=== PATIENT | male | born 1960 | race Caucasian/White ===

== ENCOUNTER → 2021-03-05 15:07 | Outpatient (CLI) | payer OTHER, SELFPAY ==
[2021-03-05 18:11] LABS: CRP < 2.90 mg/L (0.0-3.0)
[2021-03-07 17:07] LABS: Endomysial Antibody IgA Negative (Negative)
[2021-03-07 21:10] LABS: Immunoglobulin A 314 mg/dL (90-386); t-Transglutaminase IgA <2 U/mL (0-3)
== END ==
PROVIDERS: PCP Family Medicine; Referring Provider Internal Medicine Gastroenterology; Visit Provider Internal Medicine Gastroenterology
DX: R19.7 Diarrhea, unspecified (principal)
CPT/HCPCS: 36415; 82784; 83516; 86140; 86255

== ENCOUNTER 2022-09-23 08:45 | Outpatient (CLI) | payer OTHER, SELFPAY ==
[2022-09-23 09:34] LABS: Erythrocyte Sedimentation Rate 5 mm/hr (0-20)
[2022-09-23 10:24] LABS: CRP < 2.90 mg/L (0.0-3.0); LDH 177 U/L (87-241)
[2022-09-24 12:09] LABS: Anti-Centromere B Ab <0.2 AI (0.0-0.9); Anti-Chromatin <0.2 AI (0.0-0.9); Anti-Jo <0.2 AI (0.0-0.9); Anti-Scleroderma-70 AB <0.2 AI (0.0-0.9); Anti-dsDNA Ab 1 IU/mL (0-9); RNP Ab 0.2 AI (0.0-0.9); SJOGREN'S Anti-SS-A test < 0.2 AI (0.0-0.9); SJOGREN'S Anti-SS-B test < 0.2 AI (0.0-0.9); Smith Ab <0.2 AI (0.0-0.9)
[2022-09-24 16:09] LABS: Endomysial Antibody IgA Negative (Negative); Immunoglobulin A 341 mg/dL (90-386); t-Transglutaminase IgA 3 U/mL (0-3)
[2022-09-28 17:07] LABS: Albumin 3.6 g/dL (2.9-4.4); Alpha-1-Globulins 0.2 g/dL (0.0-0.4); Alpha-2-Globulins 0.8 g/dL (0.4-1.0); Angiotensin Convert Enzyme 70 U/L (14-82); Cytoplasmic Ab (C-ANCA) <1:20 titer (Neg:<1:20); Gamma Globulin 1.1 g/dL (0.4-1.8); Immunoglobulin A 340 mg/dL (90-386); Immunoglobulin E 14 IU/mL (6-495); Immunoglobulin G 1200 mg/dL (603-1613); Immunoglobulin M 115 mg/dL (20-172); PROEL- TOTAL PROTEIN 7.1 g/dL (6.0-8.5); Perinuclear Ab (P-ANCA) <1:20 titer (Neg:<1:20)
== END 2022-09-23 23:59 | disposition home or self-care (01) ==
PROVIDERS: PCP Family Medicine; Referring Provider Internal Medicine Gastroenterology; Visit Provider Internal Medicine Gastroenterology
DX: R19.7 Diarrhea, unspecified (principal)
CPT/HCPCS: 36415; 82164; 82784; 82785; 83516; 83615; 84165; 85652; 86140; 86225; 86235; 86255; 86256; 86334

== ENCOUNTER → 2022-09-30 | Outpatient (CLI) | payer OTHER, SELFPAY ==
[2022-10-03 22:07] LABS: Pancreatic Elastase, Fecal > 500 (>200)
[2022-10-11 17:07] LABS: Calprotectin, Stool 82 ug/g (0-120); Fats, Neutral Normal (.); Fats, Total Normal (.)
== END | disposition home or self-care (01) ==
PROVIDERS: PCP Family Medicine; Referring Provider Internal Medicine Gastroenterology; Visit Provider Internal Medicine Gastroenterology
DX: K58.0 Irritable bowel syndrome with diarrhea (principal)
CPT/HCPCS: 82653; 82705; 83630; 83993; 87177; 87209; 87329; 87493; 87506

== ENCOUNTER → 2023-04-29 | Outpatient (CLI) | payer OTHER, SELFPAY ==
--- NOTE | 2023-04-29 13:37 | CT_ITS ---
STUDY: CT ABDOMEN AND PELVIS WITH CONTRAST REASON FOR EXAM: Male, 62 years old. Worsening abdominal pain. History of diverticulitis and irritable bowel syndrome. RADIATION DOSAGE (If Supplied By Facility): CTDIvol = ( 13.11 ) mGy, DLP = ( 726.22 ) mGycm TECHNIQUE: Transaxial images were obtained from the dome of the diaphragm to the symphysis pubis with oral contrast. Oral and amp; IV Gastrografin and amp; 100mL Isovue-300 was administered. Sagittal and coronal images were reconstructed. Individualized dose optimization techniques were used for this CT. COMPARISON: None. FINDINGS: Minimal degree of bibasilar atelectasis. The visualized portions of the heart are within normal limits. There is decreased attenuation of the liver consistent with steatosis. There are surgical clips in the gallbladder fossa consistent with a prior cholecystectomy. Normal spleen. Normal pancreas. Normal bilateral adrenal glands. Normal right kidney. Normal left kidney. There is a small hiatal hernia. Normal small intestine. There is diverticulosis, with thickening of the colon wall, and mild pericolonic inflammation changes consistent with acute diverticulitis. The appendix is visualized and appears normal. There is diffuse atherosclerotic calcification of the abdominal aorta and its major visceral branches, without a demonstrated aneurysm. Normal inferior vena cava. Normal retroperitoneum. Normal urinary bladder. There are prostatic calcifications. There is a small umbilical hernia containing fat. Small benign appearing bilateral inguinal lymph nodes. Questionable small right hydrocele. There are degenerative changes of the visualized lumbar spine. CT/Abdomen/Pelvis WITH Contrast IMPRESSION: Findings include mild degree of noncomplicated sigmoid diverticulitis. Electronically Signed: Nahun Decker MD at 14:00 EST ,
[2023-04-29 13:51] LABS: CREATININE FINGERSTICK 1.2 mg/dL (0.70-1.30); EGFR FINGERSTICK > 60.0000 mL/min (>60)
== END | disposition home or self-care (01) ==
LOC: CT 11:34
PROVIDERS: PCP Family Medicine; Referring Provider Internal Medicine Gastroenterology; Visit Provider Internal Medicine Gastroenterology
DX: K57.92 Diverticulitis of intestine, part unspecified, without perforation or abscess without bleeding (principal)
CPT/HCPCS: 74177; Q9967

== ENCOUNTER → 2024-04-27 | Outpatient (CLI) | payer OTHER, SELFPAY ==
[2024-04-27 09:03] LABS: Erythrocyte Sedimentation Rate 3 mm/hr (0-20)
[2024-04-27 09:05] LABS: Absolute Neutrophil Count 4.2 X10^3/uL (2.0-7.7); Basophil# 0.03 X10^3/uL; Basophil% 0.4 % (0-1); Eosinophil# 0.07 X10^3/uL; Eosinophils% 0.9 % (0-5); Hematocrit 43.4 % (40-54); Hemoglobin 14.8 g/dL (13.0-16.5); Lymphocyte % 35.5 % (19-41); Mean Corp Hgb Conc 34.1 g/dL (32-36); Mean Corpuscular Hgb 31.7 pg (27.0-32.0); Mean Corpuscular Volume 92.9 fL (80-94); Mean Platelet Vol. 9.2 fl (6.2-12.0); Monocyte# 0.64 X10^3/uL; Monocyte% 8.4 % (0-10); NRBC Flagged by Analyzer 0 % (0-5); Neutrophil # 4.15 X10^3/uL (2.7-7.7); Neutrophil % 54.5 % (47-70); Platelet Count 295 K/mm3 (150-450); RBC Distribution Width CV 13.2 % (11.6-14.6); RBC Distribution Width SD 44.8 fl (35.1-43.9); Red Blood Count 4.67 M/mm3 (4.6-6.2); White Blood Count 7.6 K/mm3 (4.4-11.0)
[2024-04-27 09:27] LABS: AST(SGOT) 17 U/L (15-37); Alanine Aminotransfer ALT/SGPT 38 U/L (16-61); Albumin, Serum 3.4 g/dL (3.2-5.0); Alkaline Phosphatase 79 U/L (45-117); Anion Gap 3 (5-15); BUN 13 mg/dL (7-18); BUN/Creat Ratio 13.1 RATIO (10-20); CRP < 2.90 mg/L (0.0-3.0); Calcium,Total 9.4 mg/dL (8.5-10.1); Chloride 107 mmol/L (98-107); Creatinine, Serum 0.99 mg/dL (0.70-1.30); EST Glomerular Filtration Rate 81 mL/min (>60); Est Glom Filt Rate - Afr Amer 98 mL/min (>60); Globulin 3.5 g/dL (2.2-4.2); Glucose 99 mg/dL (74-106); Potassium 4.1 mmol/L (3.5-5.1); Protein, Total 6.9 g/dL (6.4-8.2); Sodium Level 139 mmol/L (136-145)
== END | disposition home or self-care (01) ==
LOC: LAB 08:35
PROVIDERS: PCP Family Medicine; Referring Provider Internal Medicine Gastroenterology; Visit Provider Internal Medicine Gastroenterology
DX: K62.9 Disease of anus and rectum, unspecified (principal)
CPT/HCPCS: 36415; 80053; 85025; 85652; 86140

== ENCOUNTER 2024-08-30 06:10 | Day surgery (SDC) | payer OTHER, SELFPAY ==
--- NOTE | 2024-08-25 11:11 | PAT.ANESEVAL ---
Pre-Assessment Diagnosis/Proposed Procedure Planned Operative Procedure(s): EGD PH PROBE Anesthesia History Anesthesia History - insurance healthcare representative: Anesthesia History - insurance healthcare representative Hx Hospitalization No 08/24/24 15:52 Any Problems With Anesthesia No 08/24/24 15:52 Cholinesterase deficiency No 08/24/24 15:52 You/Your Family Experience No 08/24/24 15:52 fever (hyperthermia) with Relationship Recent Exposure to Contagious Disease Does patient have nerve No 08/24/24 15:52 stimulator Patient instructed to have device shut off --Does patient have Pacemaker or ICD? When Was Last Pacemaker Check QUESTION #4 FULL TEXT: You/Your Family Experience fever (hyperthermia) with Anesthesia Last Oral Intake Last Oral intake: Last Oral Intake NPO since Meds taken in AM with sips of water? 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 - insurance healthcare representative: PONV - insurance healthcare representative Female No 08/24/24 15:52 HX of Motion Sickness No 08/24/24 15:52 HX of N/V After Surgery No 08/24/24 15:52 Non-Smoker Yes 08/24/24 15:52 Duration of Surgery greater No 08/24/24 15:52 than 60 minutes Number of Risk Factors 1 08/24/24 15:52 PONV Score Low Risk 08/24/24 15:52 Height & Weight Height & Weight: Anesthesia: Height & Weight Height 5 ft 9 in 08/18/24 09:21 Respiratory Assessment Respiratory Assessment - insurance healthcare representative: Respiratory Tract Infection Hx - insurance healthcare representative Hx Respiratory Tract Infection No 08/24/24 15:52 STOP Sleep Apnea STOP Sleep Apnea - insurance healthcare representative: STOP Sleep Apnea - insurance healthcare representative Hx Hypertension No 08/24/24 15:52 Hx Sleep Apnea No 08/24/24 15:52 CPAP BIPAP Do you snore loudly (louder No 08/24/24 15:52 than talking or can be heard Do you often feel tired/ Yes 08/24/24 15:52 fatigued/ sleepy during daytime? Has anyone observed you stop No 08/24/24 15:52 breathing during sleep? STOP Results Negative 08/24/24 15:52 QUESTION #5 FULL TEXT : Do you snore loudly (louder than talking or can be heard through closed doors)? Tobacco Use History Tobacco Use History - insurance healthcare representative: Tobacco Use History - insurance healthcare representative Tobacco Use Smoking Status Former smoker 08/24/24 15:52 Hx Tobacco Use No 08/24/24 15:52 Years Smoking Packs Smoked per Day Smoking Cessation Date was No - quit smoking greater 08/24/24 15:52 within the last 15 years than 15 years ago Hx Smoking Cessation Date Hx Smoking Cessation No 08/24/24 15:52 Counseling Hematologic Medial History Hematologic Hx - insurance healthcare representative: Hematologic Medical Hx - team lead Hx of Blood Transfusion No 08/24/24 15:52 Hx of Transfusion in last 3 No 08/24/24 15:52 Months Date of Last Transfusion (if within last 3 months) Ever experience any problems No 08/24/24 15:52 with transfusion(s)? Specify any problems Hx of Preganancy in last 3 N/A 08/24/24 15:52 Months Nurse Filling Out Transfusion DSCHRIBER 08/24/24 15:52 & Questions: Date: 08/24/24 08/24/24 15:52 Time: 15:53 08/24/24 15:52 Patient unable to answer at this time (ie. confused, unrespo /Reproduction History /Reproductive History - insurance healthcare representative: /Reproductive Hx- insurance healthcare representative Hx Now No 08/24/24 15:52 Gestational Age (in weeks): EDC: Hx Hx Para Hx Section SAB No 08/24/24 15:52 PFSH Medical History (Updated 08/24/24 @ 16:03 by Roxy Dye) Tinnitus Wears glasses Alcohol use History of steroid therapy Back pain Migraine headache Leg cramps Former smoker History of stress test Diverticulosis History of torsion of testis Hiatal hernia Acute colitis GERD (gastroesophageal reflux disease) Irritable bowel syndrome with diarrhea Osteoarthritis Fatigue Home Medications ?Medication ?Instructions ?Recorded ?Last Taken ?Type omeprazole 20 mg capsule,delayed 20 mg PO QDAY 08/18/24 08/20/24 History release Allergy/AdvReac Type Severity Reaction Status Date / Time acetaminophen (From Percocet) Allergy Intermediate Other Verified 08/24/24 15:49 amoxicillin (From Augmentin) Allergy Intermediate Other Verified 08/24/24 15:49 clavulanic acid (From Allergy Intermediate Other Verified 08/24/24 15:49 Augmentin) doxycycline Allergy Intermediate Other Verified 08/24/24 15:49 oxycodone (From Percocet) Allergy Intermediate Other Verified 08/24/24 15:49 naproxen AdvReac Nausea Verified 08/24/24 15:49 Surgical History (Updated 08/24/24 @ 16:03 by Roxy Dye) Hx of oral surgery History of esophagogastroduodenoscopy (EGD) Hx of colonoscopy History of shoulder surgery Hx of eye surgery Hx of total knee arthroplasty Hx of left knee surgery Hx of right knee surgery History of cholecystectomy Social History (Updated 08/18/24 @ 09:21 by Marj Graham LPN) Smoking Status: Former smoker alcohol intake: current alcohol intake frequency: holidays/special occasions only substance use type: does not use Audit: Pertinent Findings Pertinent Findings EKG Perinent findings: 03/02/2015. Normal sinus rhythm 70 bpm. Normal EKG. Stress test pertinent findings: 05/15/2022. Negative. 10 METS. EF 56%. Recommendation Anesthesia Recommendation Anesthesia recommendation: OPTIMIZED for anesthesia
[2024-08-30] VITALS (7 sets, daily range): BP systolic 93–150; BP diastolic 72–86; PULSE 73–87; RESP 16; TEMP 36.4–36.8; O2SAT 94–96; BMI 25.0
--- NOTE | 2024-08-30 07:21 | PCM.PRE.AN2 ---
ASA Classification* ASA Classification ASA Classification: 2 Assessment & Plan Anesthesia* Anesthesia Assessment Anesthesia Assessment: Discussed sedation and/or anesthesia options, risks, benefits, and alternatives with patient/parents/legal guardian/POA. Questions invited. The patient/parents/legal guardian/POA seems to understand and agrees to proceed with anesthesia plan. Reviewed the physical assessment, medical history, allergy history and patient home medications list prior to surgery/procedure/anesthetic and documented any changes. Performed airway and anesthesia risk assessments. Anesthesia Type Anesthesia Type: MAC Anesthesia Focused Assessment* Temperature: 98.2 F Pulse Rate: 87 Blood Pressure: 150/84 Respiratory Rate: 16 Pulse Ox: 96 Airway Assessment Mouth opens: >3 cm Mallampati Score: II Focused Labs Anesthesia Preop lab: CBC WBC 7.6 K/mm3 (4.4-11.0) 04/27/24 08:46 04/27/24 RBC 4.67 M/mm3 (4.6-6.2) 04/27/24 08:46 04/27/24 Hgb 14.8 g/dL (13.0-16.5) 04/27/24 08:46 04/27/24 Hct 43.4 % (40-54) 04/27/24 08:46 04/27/24 Plt Count 295 K/mm3 (150-450) 04/27/24 08:46 04/27/24 CHEMISTRY Potassium 4.1 mmol/L (3.5-5.1) 04/27/24 08:46 04/27/24 Sodium 139 mmol/L (136-145) 04/27/24 08:46 04/27/24 BUN 13 mg/dL (7-18) 04/27/24 08:46 04/27/24 Creatinine 0.99 mg/dL (0.70-1.30) 04/27/24 08:46 04/27/24 Glucose 99 mg/dL (74-106) 04/27/24 08:46 04/27/24 COAG Pre-Assessment Diagnosis/Proposed Procedure Planned Operative Procedure(s): EGD PH PROBE Anesthesia History Anesthesia History - food quality tester: Anesthesia History - food quality tester Hx Hospitalization No 08/24/24 15:52 Any Problems With Anesthesia No 08/24/24 15:52 Cholinesterase deficiency No 08/24/24 15:52 You/Your Family Experience No 08/24/24 15:52 fever (hyperthermia) with Relationship Recent Exposure to Contagious No 08/30/24 06:56 Disease Does patient have nerve No 08/24/24 15:52 stimulator Patient instructed to have device shut off --Does patient have Pacemaker No 08/30/24 06:56 or ICD? When Was Last Pacemaker Check QUESTION #4 FULL TEXT: You/Your Family Experience fever (hyperthermia) with Anesthesia Last Oral Intake Last Oral intake: Last Oral Intake NPO since 22:00 08/30/24 06:56 Meds taken in AM with sips of water? 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 - food quality tester: PONV - food quality tester Female No 08/24/24 15:52 HX of Motion Sickness No 08/24/24 15:52 HX of N/V After Surgery No 08/24/24 15:52 Non-Smoker Yes 08/24/24 15:52 Duration of Surgery greater No 08/24/24 15:52 than 60 minutes Number of Risk Factors 1 08/24/24 15:52 PONV Score Low Risk 08/24/24 15:52 Height & Weight Height & Weight: Anesthesia: Height & Weight Height 5 ft 10 in 08/30/24 06:56 Weight: 79 kg 08/30/24 06:56 Body Mass Index (BMI) 25.0 08/30/24 06:56 Respiratory Assessment Respiratory Assessment - food quality tester: Respiratory Tract Infection Hx - food quality tester Hx Respiratory Tract Infection No 08/24/24 15:52 STOP Sleep Apnea STOP Sleep Apnea - food quality tester: STOP Sleep Apnea - food quality tester Hx Hypertension No 08/24/24 15:52 Hx Sleep Apnea No 08/24/24 15:52 CPAP BIPAP Do you snore loudly (louder No 08/24/24 15:52 than talking or can be heard Do you often feel tired/ Yes 08/24/24 15:52 fatigued/ sleepy during daytime? Has anyone observed you stop No 08/24/24 15:52 breathing during sleep? STOP Results Negative 08/24/24 15:52 QUESTION #5 FULL TEXT : Do you snore loudly (louder than talking or can be heard through closed doors)? Tobacco Use History Tobacco Use History - food quality tester: Tobacco Use History - food quality tester Tobacco Use Smoking Status Former smoker 08/24/24 15:52 Hx Tobacco Use No 08/24/24 15:52 Years Smoking Packs Smoked per Day Smoking Cessation Date was No - quit smoking greater 08/24/24 15:52 within the last 15 years than 15 years ago Hx Smoking Cessation Date Hx Smoking Cessation No 08/24/24 15:52 Counseling Hematologic Medial History Hematologic Hx - food quality tester: Hematologic Medical Hx - night club manager Hx of Blood Transfusion No 08/24/24 15:52 Hx of Transfusion in last 3 No 08/24/24 15:52 Months Date of Last Transfusion (if within last 3 months) Ever experience any problems No 08/24/24 15:52 with transfusion(s)? Specify any problems Hx of Preganancy in last 3 N/A 08/24/24 15:52 Months Nurse Filling Out Transfusion DSCHRIBER 08/24/24 15:52 & Questions: Date: 08/24/24 08/24/24 15:52 Time: 15:53 08/24/24 15:52 Patient unable to answer at this time (ie. confused, unrespo /Reproduction History /Reproductive History - food quality tester: /Reproductive Hx- food quality tester Hx Now No 08/24/24 15:52 Gestational Age (in weeks): EDC: Hx Hx Para Hx Section SAB No 08/24/24 15:52 PFSH Medical History Tinnitus Wears glasses Alcohol use History of steroid therapy Back pain Migraine headache Leg cramps Former smoker History of stress test Diverticulosis History of torsion of testis Hiatal hernia Acute colitis GERD (gastroesophageal reflux disease) Irritable bowel syndrome with diarrhea Osteoarthritis Fatigue Home Medications ?Medication ?Instructions ?Recorded ?Last Taken ?Type omeprazole 20 mg capsule,delayed 20 mg PO QDAY 08/18/24 08/20/24 History release calcium carbonate (Tums) 400 mg PO TID 08/30/24 08/29/24 21:00 History famotidine 10 mg tablet (Acid 10 mg PO DAILY 08/30/24 08/27/24 06:00 History Signal Integrity Engineer (famotidine)) Allergy/AdvReac Type Severity Reaction Status Date / Time acetaminophen (From Percocet) Allergy Intermediate Other Verified 08/30/24 06:47 amoxicillin (From Augmentin) Allergy Intermediate Other Verified 08/30/24 06:47 clavulanic acid (From Allergy Intermediate Other Verified 08/30/24 06:47 Augmentin) doxycycline Allergy Intermediate Other Verified 08/30/24 06:47 oxycodone (From Percocet) Allergy Intermediate Other Verified 08/30/24 06:47 naproxen AdvReac Nausea Verified 08/30/24 06:47 Surgical History Hx of oral surgery History of esophagogastroduodenoscopy (EGD) Hx of colonoscopy History of shoulder surgery Hx of eye surgery Hx of total knee arthroplasty Hx of left knee surgery Hx of right knee surgery History of cholecystectomy Social History Smoking Status: Former smoker alcohol intake: current alcohol intake frequency: holidays/special occasions only substance use type: does not use Review of Systems (Anesthesia) ROS Narrative System reviewed and no additional complaints, except as documented.
--- NOTE | 2024-08-30 07:23 | HP.PCM_ITS ---
History and Physical Date of Service: 08/18/24 MR#: [id number] Acct: [id number] Name: TRINITY DUMONT Rep #: [id number] : 1960 Provider: Dr. Kiel Lynch MD Age/Sex: 63/M Location: [facility] Status: Signed Intake Vital Signs 09/24/2307:00 08/18/2508:21 Height 5 ft 10 in 5 ft 9 in Weight: 177 lb 6 oz BMI 26.2 BP 160/100 H Blood Pressure Location Rt brachial Position Sitting Respiration 18 Pulse 72 Pulse Source Monitor Temp 97.3 F L Temp Source Temporal Pulse Oximetry (%) 99 Oxygen Delivery Method room air Intake Visit Reasons: HIATAL HERNIA Chief Complaint: hiatal hernia Is patient in pain?: No Allergies acetaminophen (From Percocet) Allergy (Intermediate, Verified 08/18/24 09:22) Otheramoxicillin (From Augmentin) Allergy (Intermediate, Verified 08/18/24 09:22) Otherclavulanic acid (From Augmentin) Allergy (Intermediate, Verified 08/18/24 09:22) Otherdoxycycline Allergy (Intermediate, Verified 08/18/24 09:22) Otheroxycodone (From Percocet) Allergy (Intermediate, Verified 08/18/24 09:22) Othernaproxen Adverse Reaction (Verified 08/18/24 09:22) Nausea Medications ?Medication ?Instructions ?Recorded ?Confirmed ?Type duloxetine 20 mg capsule,delayed 20 mg PO QHS #30 caps 01/02/24 04/27/24 Rx release (Cymbalta) dicyclomine 20 mg tablet 20 mg PO BID PRN 04/27/24 04/27/24 Histo ry omeprazole 20 mg capsule,delayed 20 mg PO QDAY 08/18/24 08/18/24 History release [facility] Medical History (Updated 08/18/24 @ 12:[address] Kiel Lynch MD) Hiatal hernia Acute colitis GERD (gastroesophageal reflux disease) Acute diverticulitis Irritable bowel syndrome with diarrhea Dysfunctional gallbladder Bloody stools Osteoarthritis Acute back pain Kidney stones SOB (shortness of breath) Fatigue Surgical History History of cholecystectomy Social History (Updated 08/18/24 @ 09:21 by GEORGES Bass Smoking Status: Former smoker alcohol intake: current alcohol intake frequency: holidays/special occasions only substance use type: does not use HPI HPI HPI: Patient is a 63-year-old male who presents for evaluation of acid reflux and a history of hiatal hernia. They are referred for surgical consultation from Dr. Félix Dorado. Patient presents today with his spouse. He shares that he has had reflux so long he cannot recall its onset, however, he notes that it has been progressive. To manage the symptoms he states he will sometimes take Prilosec both in the morning and then later again in the evening. He has not used any other medications for this symptom. He does confirm that it is acid reflux more than heartburn that is the problem. He suggests a symptom frequency of at least once per week and an episode can last for hours at a time. He notes that both mornings and evenings are worse than the middle of the day. In addition to straightforward reflux he suggest that he is burping acid which makes it feel like he is ready to puke. Additionally to he states he is experiencing some new hoarseness for which she has no other explanation. He reports a diagnosis of walking pneumonia approximately a decade ago but denies frequent upper respiratory tract infections. Outside of his reflux issue Mr. Dumont is treated by Dr. Carias of gastroenterology for a variant of diverticulitis. He states that he lives life around the toilet. By this he means that he experiences frequent diarrhea but states both things have been better since following with Dr. Carias and being started on Cymbalta and dicyclomine. Patient completed both colonoscopy and EGD with Dr. Kaz Reyes in 2022. He shares that he does have a history of polyps. He is unaware of any personal history of Garcia's esophagus. Patient has family history of esophageal cancer with his father. Patient describes trying to make lifestyle modifications to assist with his disease process and declares that he eats no later than 6 PM each night and then retires to bed between 8 PM and 9 PM. 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 While sleeping he reports that he is kind of propped on his pillows. Outside of these considerations he has tried to limit his caffeine and reports just 1 cup of coffee and occasional Mountain Dew daily. He also states that he is very careful with consumption of any spicy foods. ROS General General: No weight change, appetite, fatigue, colon cancer, breast cancer or weakness HEENT HEENT: No difficulty swallowing, eye injury, eye surgery, swollen glands or hoarseness Endo Endocrine: No thyroid disease, diabetes mellitus, thyroid cancer, Hair loss, heat intolerance or cold intolerance Skin Skin: No rash or changing moles Musc Musculoskeletal: Yes back problems and arthritis; No rheumatoid arthritis, gout or joint pain Cardio Cardiovascular: No murmur, pacemaker, heart disease, atrial fibrillation, high blood pressure, heart attack, heart stent, palpitations, shortness of breath with exertion or chest pain Psych Psychiatric: No depression, anxiety or hearing voices Resp Respiratory: No shortness of breath, No sleep apnea, No cough, No COPD, No asthma, No emphysema and No wheezing Gastro Gastrointestinal: Yes abdominal pain, Yes nausea or vomiting, Yes diarrhea, Yes constipation, Yes blood in stool, Yes acid reflux, Yes hemorrhoids, No ulcers, No gallbladder problem and No black,tarry stools Bjorn Hematologic: No blood thinners, No blood disorders, No bleeding, No anemia and No blood clots Neuro Neurologic: Yes numbness, Yes tingling and No weakness Exam Const General: cooperative, comfortable and no acute distress Orientation: alert, awake and oriented x3 Resp Effort & Inspection: normal respiratory effort GI Other: Normal habitus, scars consistent with prior port sites are well-healed. No visible herniation. Nondistended, soft, nontender to palpation x 4 quadrants. Assessment and Plan Assessment and Plan (1) GERD (gastroesophageal reflux disease): Status: Acute Comment: Patient is 63-year-old male with gastroesophageal reflux disease that is overall managed with use of PPI medications, however, patient has noted increasing symptom frequency and a concurrent need to increase this medication for control of his symptoms. He states it is ultimately his wish to no longer require these medications but also to manage his risk for esophageal cancer?of disease from which his father ultimately passed. His previously diagnosed with a hiatal hernia on endoscopy and this is seen as well on CAT scan imaging of his abdomen and pelvis. I do not see that he had any formal biopsies of the gastroesophageal junction and no pH study was undertaken at that time. Therefore, it is my recommendation to repeat patient's EGD with biopsy and begin a pH study at that time. After a discussion of the pathophysiology and possible fundoplication, patient reports that he is interested in proceeding with surgical preoperative evaluation and we will thus plan to refer for for both esophagram and esophageal manometry. I briefly discussed the options for surgical repair to include full versus partial wrapping and suggested that today's literature largely favors the latter. I did invite patient to begin investigation for himself as well. Hand drawings were made to illustrate relevant anatomy and patient actually photographed these notes for later reference. Along with these descriptions I discussed that some patients have abnormal or inability to belch or vomit and while patient had some concerns he stated his interest in being done with the retrosternal discomfort seemed to outweigh these other concerns. Plan: ? EGD with pH probe ? Esophageal manometry ? Barium esophagram (2) Hiatal hernia: Status: Acute Comment: Patient with ongoing consideration for laparoscopic hiatal hernia repair with fundoplication. At the outset patient appears to be an ideal candidate for this procedure based on his present habitus, experience with gastroesophageal reflux disease (in response to medical treatment), his interest in being free of PPI medications, and his family history. Orders: Orders Esophagus Single Contrast Today K21.9 - Gastro-esophageal reflux disease without esophagitis EGD with 48 pH probe Today K44.9 - Diaphragmatic hernia without obstruction or gangrene Esophageal Manometry Today K21.9 - Gastro-esophageal reflux disease without esophagitis, K44.9 - Diaphragmatic hernia without obstruction or gangrene Coding Level of Care Code Off vis,new,level 4 Diagnoses GERD (gastroesophageal reflux disease) K21.9 Hiatal hernia K44.9 Time Spent (min) 50 08/18/24 1206 <Electronically signed by Kiel Lynch MD> Date Kiel Lynch MD Cosigner Signature: Date (if applicable) CC: Dr. Félix Dorado MD ~ I have examined the patient the following changes are noted: Patient states that he has had a difficult time following discontinuation of his PPI. He is encouraged to stay the course and also refrain from other antiacids during the procedure recording. Lastly he wishes to know whether or not his diet was changed. He is encouraged to take a diet that is reflective of his normal intake. Will proceed to endoscopy suite for EGD with pH probe placement.
--- NOTE | 2024-08-30 07:30 | EGD_PTH ---
PATIENT: TRINITY DUMONT LOC: EN U#:[id number] AGE/SX: 63/M ROOM: RE08/30/[address]: Dr. Kiel Lynch MD : 1960 BED: DIS: 08/30/2024 SPEC #: [id number] RECD: 08/30/24 12:06 STATUS: LUCILA ALLA #: [id number] PRICILLA: 08/30/24 07:[address]: Kiel Lynch DEPT: SURGICAL PATHOLOGY RECD BY: Enrike Bernstein ENTERED: 08/30/24 12:07 SP TYPE: EGD BIOPSY CLAUS DR: Dr. Félix Dorado MD Tissues: A - Duodenum, NOS B - Gastric mucous membrane C - Gastric mucous membrane D - COLON BIOPSY E - Esophagus, NOS Procedures: Immunohistochemical Stains Surgery Specimen Level IV HEADER OPERATION: EGD, biopsy, polypectomy PRE-OP DIAGNOSIS: GERD, hiatal hernia TISSUE SUBMITTED: A- Duodenal bulb ulcerated mucosa biopsy, B- Antral nodule biopsy, C- Antrum biopsy, D- Gastric polyps, E- Distal esophagus plaque biopsy MICROSCOPIC DIAGNOSIS A. Small bowel, duodenal bulb, ulcerated mucosa, biopsy: * Acute and chronic duodenitis with focal surface erosion and fibrinous exudate (See note) Note: Immunohistochemical staining for Helicobacter pylori organisms is in progress and will be reported as an addendum B. Stomach, antral nodule, biopsy: * Antral mucosa with chronic focal active inflammation with reactive changes and focal intestinal metaplasia (See note) Note: Immunohistochemical staining for Helicobacter pylori organisms is in progress and will be reported as an addendum C. Stomach, antrum, biopsy: * Antral/oxyntic mucosa with mild chronic inflammation * No morphologic evidence of Helicobacter pylori organisms identified on H&E or immunostained sections D. Stomach, gastric polyps, biopsy: * Fundic gland polyps E. Distal esophagus, plaque, biopsy: * Benign squamous epithelium with no pathologic change MICROSCOPIC DESCRIPTION Slides are reviewed. These tests were developed and their performance characteristics determined by [facility]. They may not have been cleared or approved by the U.S. Food and Drug Administration. The FDA has determined that such clearance or approval is not necessary. The above immunohistochemical/dualISH markers are ordered and reviewed by the Pathologist. GROSS DESCRIPTION A. Received in formalin in a container labeled with the patient's name, date of , and duodenal bulb ulcerated mucosa biopsy are 2 juarez-pink fragments of mucosal tissue, each measuring 0.3 x 0.2 x 0.2 cm. Submitted in toto in A1. B. Received in formalin in a container labeled with the patient's name, date of , and antral nodule biopsy is a 0.5 x 0.3 x 0.3 cm fragment of juarez-pink mucosal tissue. Submitted in toto in B1. C. Received in formalin in a container labeled with the patient's name, date of , and antrum biopsy is a 0.5 x 0.4 x 0.3 cm fragment of juarez-pink mucosal tissue. Submitted in toto in C1. D. Received in formalin in a container labeled with the patient's name, date of , and gastric polyps are multiple juarez-pink fragments of mucosal tissue measuring 2.2 x 2.0 x 0.6 cm in aggregate. The largest fragments are sectioned (no margin identified). Submitted entirely in D1. E. Received in formalin in a container labeled with the patient's name, date of , and distal esophagus plaque biopsy are multiple juarez-pink and wispy fragments of mucosal tissue measuring 0.6 x 0.5 x 0.1 cm. Submitted in toto in E1. [facility] 08/31/2024 CPT:73323g4,[id number] ADDENDUM ADDENDUM 09/16/2024 15:02 ADDENDUM 09/16/2024 15:02 ADDENDUM 09/16/2024 15:02 ADDENDUM 09/16/2024 15:02 ADDENDUM 09/16/2024 15:02 Immunohistochemical staining for part A and B are negative
--- NOTE | 2024-08-30 08:47 | OP.CCLET_ITS ---
08/30/2024 Félix Dorado Md Re : Upper GI endoscopy procedure for Richard Boo Estrada This procedure was performed on Friday, August 30, 2024. My impressions and recommendations are as follows: Impressions : - Duodenitis. Biopsied. - Two mucosal papules (nodules) found in the stomach. Biopsied. - Erythematous mucosa in the antrum. Biopsied. - Multiple gastric polyps. Resected and retrieved. - Large hiatal hernia. - A single plaque in the distal esophagus. Biopsied. - Large hiatal hernia. - The PENN pH capsule was deployed. Recommendations : - Discharge patient to home (via wheelchair). - Soft diet today. - No aspirin, ibuprofen, naproxen, or other non-steroidal anti-inflammatory drugs for 2 days after biopsy. - Await pathology results. My findings are described in the full procedure note, which is enclosed. If I can be of further assistance, please feel free to contact me at Doctor phone number(s): , Work: . Sincerely, Kiel Lynch MD 08/30/2024 8:46:41 AM This report has been signed electronically.
--- NOTE | 2024-08-30 08:47 | OP.EGD_ITS ---
Patient Name: Richard Romero Procedure Date: 08/30/2024 7:13 AM Date of : 1960 Age: 63 Procedure: Upper GI endoscopy Indications: Esophageal reflux, Hiatal hernia Providers: Kiel Lynch MD Referring MD: Félix Dorado Md Medicines: See the Anesthesia note for documentation of the administered medications Patient Profile: Patient has symptoms of chronic heartburn and chronic nausea. Complications: No immediate complications. Estimated blood loss: Minimal. Procedure: Pre-Anesthesia Assessment: - The heart rate, respiratory rate, oxygen saturations, blood pressure, adequacy of pulmonary ventilation, and response to care were monitored throughout the procedure. After obtaining informed consent, the endoscope was passed under direct vision. Throughout the procedure, the patient's blood pressure, pulse, and oxygen saturations were monitored continuously. The Endoscope was introduced through the mouth, and advanced to the second part of duodenum. The upper GI endoscopy was accomplished without difficulty. The patient tolerated the procedure well. Scope In: 7:51:44 AM Scope Out: 8:33:01 AM Total Procedure Duration Time 0 hours 41 minutes 17 seconds Findings: Localized mild inflammation characterized by shallow ulcerations was found in the duodenal bulb. Biopsies were taken with a cold forceps for histology. Estimated blood loss was minimal. Two 3 to 5 mm mucosal papules (nodules) with no bleeding and no stigmata of recent bleeding were found in the gastric antrum. The nodules were Jess classification IIa (superficial, elevated). Biopsies were taken with a cold forceps for histology. Estimated blood loss was minimal. Localized mildly erythematous mucosa without bleeding was found in the gastric antrum. Biopsies were taken with a cold forceps for Helicobacter pylori testing. Estimated blood loss was minimal. Multiple 2 to 7 mm semi-pedunculated polyps with no bleeding and no stigmata of recent bleeding were found in the gastric fundus and in the gastric body. The polyp was removed with a hot snare. Resection and retrieval were complete using a Johnston net. A large hiatal hernia was present. Estimated blood loss: None. A single 5 mm plaque was found in the distal esophagus, 37 cm from the incisors. Biopsies were taken with a cold forceps for histology. Estimated blood loss was minimal. A large hiatal hernia was present. The PENN capsule with delivery system was introduced through the mouth and advanced into the esophagus, such that the PENN pH capsule was positioned 33 cm from the incisors, which was 6 cm proximal to the GE junction. The PENN pH capsule was then deployed and attached to the esophageal mucosa. The delivery system was then withdrawn. Endoscopy was utilized for probe placement and diagnostic evaluation. Impression: - Duodenitis. Biopsied. - Two mucosal papules (nodules) found in the stomach. Biopsied. - Erythematous mucosa in the antrum. Biopsied. - Multiple gastric polyps. Resected and retrieved. - Large hiatal hernia. - A single plaque in the distal esophagus. Biopsied. - Large hiatal hernia. - The PENN pH capsule was deployed. Recommendation: - Discharge patient to home (via wheelchair). - Soft diet today. - No aspirin, ibuprofen, naproxen, or other non-steroidal anti-inflammatory drugs for 2 days after biopsy. - Await pathology results. Procedure Code(s): --- Professional --- 12852, Esophagogastroduodenoscopy, flexible, transoral; with removal of tumor(s), polyp(s), or other lesion(s) by snare technique 95667, 59, Esophagogastroduodenoscopy, flexible, transoral; with biopsy, single or multiple Diagnosis Code(s): --- Professional --- K29.80, Duodenitis without bleeding K31.89, Other diseases of stomach and duodenum K31.7, Polyp of stomach and duodenum K44.9, Diaphragmatic hernia without obstruction or gangrene K22.89, Other specified disease of esophagus K21.9, Gastro-esophageal reflux disease without esophagitis CPT copyright 2021 [employer]. All rights reserved. The codes documented in this report are preliminary and upon outpatient coder review may be revised to meet current compliance requirements. Kiel Lynch MD 08/30/2024 8:46:41 AM This report has been signed electronically. Number of Addenda: 0 Note Initiated On: 08/30/2024 7:13 AM
--- NOTE | 2024-08-30 08:48 | PCM.POST.ANE ---
Anesthesia: Postop Eval I Current Vital Signs Temperature: 97.6 F Pulse Rate: 78 Blood Pressure: 93/72 Respiratory Rate: 16 Pulse Ox: 94 Oxygen Delivery Method: Room Air Assessment Airway patent: Yes Spontaneous unlabored respirations: Yes Mental status: Asleep nausea: No Vomiting: No Anesthesia Complication: No Fluid Hydration Crystalloid volume administer (ml): 95 Total IV fluid infused: 95 Progress Note Anesthesia document: Postop Eval 1 completed: Yes
--- NOTE | 2024-08-30 08:56 | PCM.POSTANE2 ---
Anesthesia Postop Eval I Sum Postop Eval Completion status Anesthesia document: Postop Eval 1 completed: Yes Anesthesia Postop Eval I Summary Anesthesia Postop Eval I Summary: Anesthesia Postop Eval I: Assessment Summary Airway patent Yes 08/30/24 08:50 [email or web address] Spontaneous unlabored Yes 08/30/24 08:50 [email or web address] respirations Mental status Asleep 08/30/24 08:50 [email or web address] nausea No 08/30/24 08:50 [email or web address] Vomiting No 08/30/24 08:50 [email or web address] Anesthesia Postop Eval I: Fluid Summary Crystalloid volume administer 95 08/30/24 08:50 [email or web address] (ml) Colloids volume administered ( ml) Blood Product volume administered (ml) Total IV fluid infused 95 08/30/24 08:50 [email or web address] Anesthesia Postop Eval I: Summary Notes Anesthesia Complication No 08/30/24 08:50 [email or web address] Anesthesia Complication Comment: Post-operative progress note Anesthesia: Postop Eval II Evaluation Mental status: Awake Pain Level: 0 nausea: No Vomiting: No
== END 2024-08-30 09:46 | disposition home or self-care (01) ==
LOC: EN 06:11 → AC 06:15
PROVIDERS: PCP Family Medicine; Referring Provider Family Medicine; Visit Provider Surgery
PROC: (CPT 43235; principal; 2024-08-30 07:25)
DX: K44.9 Diaphragmatic hernia without obstruction or gangrene (principal); K31.7 Polyp of stomach and duodenum; K22.89 Other specified disease of esophagus; K31.89 Other diseases of stomach and duodenum; K21.9 Gastro-esophageal reflux disease without esophagitis; K29.80 Duodenitis without bleeding; Z87.891 Personal history of nicotine dependence; Z79.899 Other long term (current) drug therapy; K58.0 Irritable bowel syndrome with diarrhea; Z90.49 Acquired absence of other specified parts of digestive tract; Z86.0100 Personal history of colon polyps, unspecified; Z80.8 Family history of malignant neoplasm of other organs or systems
CPT/HCPCS: 43251; 43239; 88305; 88342; A4216; J2405

== ENCOUNTER → 2024-09-03 | Day surgery (SDC) | payer OTHER, SELFPAY ==
[2024-09-03] MEDS: Lidocaine Jelly 2% 20 ML Syringe (URO-JET) 1 APPLIC (07:25)
[2024-09-03 07:31] VITALS: BP 166/85; PULSE 88; RESP 18; TEMP 36.6; O2SAT 100
== END | disposition home or self-care (01) ==
PROVIDERS: PCP Family Medicine; Referring Provider Family Medicine; Visit Provider Surgery
PROC: F00ZJWZ Instrumental Swallowing and Oral Function Assessment using Swallowing Equipment (ICD-10-PCS; CPT 43235; principal; 2024-09-03 07:25)
DX: Z53.20 Procedure and treatment not carried out because of patient's decision for unspecified reasons (principal)
CPT/HCPCS: 91010

== ENCOUNTER → 2024-09-16 | Outpatient (CLI) | payer OTHER, SELFPAY ==
--- NOTE | 2024-09-16 08:25 | RAD_ITS ---
EXAM: Single and double contrast esophagram. CLINICAL HISTORY: Gastroesophageal reflux disease. Patient with known hiatal hernia, as well. History of cholecystectomy. PH probe present in the distal esophagus. COMPARISON: None. TECHNIQUE: Single and double contrast esophagram. FINDINGS: A pH probe is seen of the distal esophagus. No area of persistent narrowing is seen. In the distal esophagus, mild mucosal irregularity is seen, concerning for the presence of inflammation. This is perhaps most apparent on emptying of the esophagus. No mass is appreciated. Esophageal motility does not appear to be impaired. The esophagogastric junction is widely patent. A very small sliding-type hiatal hernia is noted. Gastroesophageal reflux was seen to the level of the proximal esophagus. Limited imaging of the stomach and duodenum demonstrates no additional abnormality. RAD/Esophagus Dual Contrast IMPRESSION: 1. In the distal esophagus, mild mucosal irregularity is seen, concerning for t he presence of inflammation. No mass is appreciated. 2. Distal esophageal pH probe in place. 3. Very small sliding-type hiatal hernia. 4. Gastroesophageal reflux was seen to the level of the proximal esophagus. Reading Location: [place] [id number]
== END | disposition home or self-care (01) ==
LOC: RAD 07:52
PROVIDERS: PCP Family Medicine; Referring Provider Surgery; Visit Provider Surgery
DX: K21.9 Gastro-esophageal reflux disease without esophagitis (principal); K44.9 Diaphragmatic hernia without obstruction or gangrene
CPT/HCPCS: 74221

== ENCOUNTER → 2024-09-30 | Outpatient (CLI) | payer OTHER, SELFPAY ==
--- NOTE | 2024-09-30 08:05 | RAD_ITS ---
PROCEDURE: CHEST PA AND LATERAL 09/30/2024 REASON FOR EXAM: PH PROBE TECHNIQUE: Frontal and lateral views of the chest. COMPARISON: None. RAD/Chest PA and Lateral IMPRESSION: Right upper quadrant abdominal surgical clips are seen. Mild thoracic spine degenerative changes are noted. The reported previous esophageal pH probe is no longer visualized. A metallic density is seen in the upper abdomen, probably of the level of the transverse colon. Lungs appear clear. No pleural effusion or pneumothorax is noted. The cardiomediastinal silhouette is within the normal range. Reading Location: [id number]
== END | disposition home or self-care (01) ==
PROVIDERS: PCP Family Medicine; Referring Provider Surgery; Visit Provider Surgery
DX: K21.9 Gastro-esophageal reflux disease without esophagitis (principal)
CPT/HCPCS: 71046

== ENCOUNTER 2024-10-01 07:38 | Day surgery (SDC) | payer OTHER, SELFPAY ==
[2024-10-01] MEDS: Lidocaine Jelly 2% 20 ML Syringe (URO-JET) 1 APPLIC (07:50)
[2024-10-01 07:57] VITALS: BP 157/88; PULSE 79; RESP 16; TEMP 36.7; O2SAT 100
== END 2024-10-01 08:21 | disposition home or self-care (01) ==
PROVIDERS: PCP Family Medicine; Referring Provider Family Medicine; Visit Provider Surgery
PROC: F00ZJWZ Instrumental Swallowing and Oral Function Assessment using Swallowing Equipment (ICD-10-PCS; CPT 43235; principal; 2024-10-01 07:55)
DX: K21.9 Gastro-esophageal reflux disease without esophagitis (principal)
CPT/HCPCS: 91010

== ENCOUNTER 2024-11-22 12:24 | Observation (INO) | payer OTHER, SELFPAY ==
--- NOTE | 2024-11-17 06:51 | EKG12_ITS ---
Test Reason : PREOP Blood Pressure : */* mmHG Vent. Rate : 73 BPM Atrial Rate : 73 BPM P-R Int : 162 ms QRS Dur : 84 ms QT Int : 396 ms P-R-T Axes : 40 2 27 degrees QTcB Int : 436 ms Normal sinus rhythm Normal ECG Confirmed by DOUGLAS RAMOS, NATI ([id number]), editor & co founder NIKOLE MARQUEZ ([id number]) on 11/18/2024 6:41:36 AM Referred By: Kiel Lynch Confirmed By: NATI COLE MD
[2024-11-17 08:35] LABS: Hematocrit 42.8 % (40-54); Hemoglobin 14.7 g/dL (13.0-16.5); Mean Corp Hgb Conc 34.3 g/dL (32-36); Mean Corpuscular Volume 95.3 fL (80-94); Mean Platelet Vol. 9.8 fl (6.2-12.0); Platelet Count 292 K/mm3 (150-450); RBC Distribution Width CV 12.6 % (11.6-14.6); RBC Distribution Width SD 43.9 fl (35.1-43.9); Red Blood Count 4.49 M/mm3 (4.6-6.2); White Blood Count 7.0 K/mm3 (4.4-11.0)
[2024-11-22] VITALS (17 sets, daily range): BP systolic 141–165; BP diastolic 82–98; PULSE 80–118; RESP 16–20; TEMP 36.6–37.3; O2SAT 92–99; BMI 24.3
[2024-11-22] MEDS: Lactated Ringers 1,000 ML 15 ML IV (06:28)
--- NOTE | 2024-11-22 06:31 | PRE.ANES_ITS ---
ASA Classification* ASA Classification ASA Classification: 2 Assessment & Plan Anesthesia* Anesthesia Assessment Anesthesia Assessment: Discussed sedation and/or anesthesia options, risks, benefits, and alternatives with patient/parents/legal guardian/POA. Questions invited. The patient/parents/legal guardian/POA seems to understand and agrees to proceed with anesthesia plan. Reviewed the physical assessment, medical history, allergy history and patient home medications list prior to surgery/procedure/anesthetic and documented any changes. Performed airway and anesthesia risk assessments. Anesthesia Type Anesthesia Type: General (Discussed risks of dentition injury, sore throat, CVA, TN, post-op ventilation, PONV, multiple PIVs, arterial line, aspiration. ) History Source History Obtained from:: Patient and Chart Anesthesia Focused Assessment* Temperature: 97.8 F Pulse Rate: 80 Blood Pressure: 163/98 Respiratory Rate: 16 Pulse Ox: 99 Oxygen Delivery Method: Room Air Airway Assessment Mouth opens: >3 cm Mallampati Score: II Teeth Condition: Caps/Crowns (top front 2 teeth have caps/implant) and Implants Neck Range of motion (ROM): Full ROM Labs Anesthesia Preop lab: CBC WBC 7.0 K/mm3 (4.4-11.0) 11/17/24 07:17 11/17/24 RBC 4.49 M/mm3 (4.6-6.2) L 11/17/24 07:17 11/17/24 Hgb 14.7 g/dL (13.0-16.5) 11/17/24 07:17 11/17/24 Hct 42.8 % (40-54) 11/17/24 07:17 11/17/24 Plt Count 292 K/mm3 (150-450) 11/17/24 07:17 11/17/24 CHEMISTRY Potassium 4.1 mmol/L (3.5-5.1) 04/27/24 08:46 04/27/24 Sodium 139 mmol/L (136-145) 04/27/24 08:46 04/27/24 BUN 13 mg/dL (7-18) 04/27/24 08:46 04/27/24 Creatinine 0.99 mg/dL (0.70-1.30) 04/27/24 08:46 04/27/24 Glucose 99 mg/dL (74-106) 04/27/24 08:46 04/27/24 COAG Pre-Assessment Diagnosis/Proposed Procedure Planned Operative Procedure(s): Laparoscopic, Eric Fundoplication Anesthesia History 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 When Was Last Pacemaker Check QUESTION #4 FULL TEXT: You/Your Family Experience fever (hyperthermia) with Anesthesia Last Oral Intake Last Oral intake: Last Oral Intake NPO since 23:00 11/22/24 06:14 Meds taken in AM with sips of No 11/22/24 06:14 water? 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 Female No 11/09/24 15:14 HX of Motion Sickness No 11/09/24 15:14 HX of N/V After Surgery No 11/09/24 15:14 Non-Smoker Yes 11/09/24 15:14 Duration of Surgery greater No 11/09/24 15:14 than 60 minutes Number of Risk Factors 1 11/09/24 15:14 PONV Score Low Risk 11/09/24 15:14 Height & Weight Height & Weight: Anesthesia: Height & Weight Height 5 ft 10 in 11/22/24 06:14 Weight: 77 kg 11/22/24 06:14 Body Mass Index (BMI) 24.3 11/22/24 06:14 Respiratory Assessment Respiratory Assessment - 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 Has anyone observed you stop No 11/09/24 15:14 breathing during sleep? STOP Results Negative 11/09/24 15:14 QUESTION #5 FULL TEXT : Do you snore loudly (louder than talking or can be heard through closed doors)? 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 Specify any problems Hx of Preganancy in last 3 N/A 11/09/24 15:14 Months Nurse Filling Out Transfusion [facility] 11/09/24 15:14 & Questions: Date: 11/09/24 11/09/24 15:14 Time: 15:18 11/09/24 15:14 Patient unable to answer at this time (ie. 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 operator Hx Now No 11/09/24 15:14 Gestational Age (in weeks): EDC: Hx Hx Para Hx Section SAB No 11/09/24 15:14 Active Medications Active Medications: Current Medications Generic Name Dose Route Start Last Admin Trade Name Freq PRN Reason Stop Dose Admin Clindamycin Phosphate 900 mg in 50 mls @ 75 mls/hr 11/22/24 07:30 Cleocin IV 11/22/24 08:09 INTRAOP ONE Lactated Ringer's 1,000 mls @ 15 mls/hr 11/22/24 06:00 11/22/24 06:28 IV 15 mls/hr .Q48H GUME Administration PFS Medical History Tinnitus Wears glasses Alcohol use History of steroid therapy Back pain Leg cramps Former smoker History of stress test Diverticulosis History of torsion of testis Hiatal hernia Acute colitis GERD (gastroesophageal reflux disease) Irritable bowel syndrome with diarrhea Osteoarthritis Fatigue Home Medications ?Medication ?Instructions ?Recorded ?Last Taken ?Type omeprazole 20 mg capsule,delayed 20 mg PO QDAY 5 11/21/24 History release dicyclomine 10 mg capsule 10 mg PO TID 11/09/24 History duloxetine 20 mg capsule,delayed 20 mg PO QHS 11/09/24 11/21/24 History release Allergy/AdvReac Type Severity Reaction Status Date / Time amoxicillin (From Augmentin) Allergy Intermediate Other Verified 11/22/24 06:10 clavulanic acid (From Allergy Intermediate Other Verified 11/22/24 06:10 Augmentin) doxycycline Allergy Intermediate Other Verified 11/22/24 06:10 acetaminophen (From Percocet) AdvReac Intermediate Other Verified 11/22/24 06:10 oxycodone (From Percocet) AdvReac Intermediate Other Verified 11/22/24 06:10 naproxen AdvReac Nausea Verified 11/22/24 06:10 Surgical History Hx of oral surgery History of esophagogastroduodenoscopy (EGD) Hx of colonoscopy History of shoulder surgery Hx of eye surgery Hx of total knee arthroplasty Hx of left knee surgery Hx of right knee surgery History of cholecystectomy Social History Smoking Status: Former smoker alcohol intake: current alcohol intake frequency: holidays/special occasions only substance use type: does not use Review of Systems (Anesthesia) ROS Narrative System reviewed and no additional complaints, except as documented. Physical Exam Const alert, oriented x3 and average body habitus Neck full ROM Resp normal respiratory effort and normal air movement Cardio regular rate and regular rhythm Back/Spine normal ROM Extremity full ROM Skin Rashes: no rashes Neuro oriented x3 and moves all extremities
--- NOTE | 2024-11-22 07:05 | HP.PCM_ITS ---
History and Physical Date of Admission: 11/22/24 Date of Service: 10/08/24 MR#: [id number] Acct: [id number] Name: TRINITY DUMONT Rep #: [id number] : 1960 Provider: Dr. Kiel Lynch MD Age/Sex: 64/M Location: [facility] Status: Signed Intake Vital Signs 08/30/2505:56 Height 5 ft 10 in Intake Visit Reasons: S/P EGD - DISCUSS RESULTS Chief Complaint: discuss results Allergies acetaminophen (From Percocet) Allergy (Intermediate, Verified 10/08/24 14:43) Otheramoxicillin (From Augmentin) Allergy (Intermediate, Verified 10/08/24 14:43) Otherclavulanic acid (From Augmentin) Allergy (Intermediate, Verified 10/08/24 14:43) Otherdoxycycline Allergy (Intermediate, Verified 10/08/24 14:43) Otheroxycodone (From Percocet) Allergy (Intermediate, Verified 10/08/24 14:43) Othernaproxen Adverse Reaction (Verified 10/08/24 14:43) Nausea Medications ?Medication ?Instructions ?Recorded ?Confirmed ?Type omeprazole 20 mg capsule,delayed 20 mg PO QDAY 08/18/24 10/08/24 History release calcium carbonate (Tums) 400 mg PO TID 08/30/24 10/08/24 History famotidine 10 mg tablet (Acid 10 mg PO DAILY 08/30/24 10/08/24 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)) PFSH Medical History Tinnitus Wears glasses Alcohol use History of steroid therapy Back pain Migraine headache Leg cramps Former smoker History of stress test Diverticulosis History of torsion of testis Hiatal hernia Acute colitis GERD (gastroesophageal reflux disease) Irritable bowel syndrome with diarrhea Osteoarthritis Fatigue Surgical History Hx of oral surgery History of esophagogastroduodenoscopy (EGD) Hx of colonoscopy History of shoulder surgery Hx of eye surgery Hx of total knee arthroplasty Hx of left knee surgery Hx of right knee surgery History of cholecystectomy Social History Smoking Status: Former smoker alcohol intake: current alcohol intake frequency: holidays/special occasions only substance use type: does not use HPI HPI HPI: Patient is a 64-year-old male who makes follow-up visit after undergoing additional workup for hiatal hernia repair. Initial consultation was 08/18/2024 but was last seen and during EGD 08/30/2024. He reports today's visit with his . He shares that apart from the new appreciation for his Prilosec he is the same old same old. By this he states he recognizes that he depends on the PPI medication to feel reasonably well without his reflux. Below is recapitulated from patient's initial consultation visit for ease of review: Patient is a 63-year-old male who presents for evaluation of acid reflux and a history of hiatal hernia. They are referred for surgical consultation from Dr. Félix Dorado. Patient presents today with his spouse. He shares that he has had reflux so long he cannot recall its onset, however, he notes that it has been progressive. To manage the symptoms he states he will sometimes take Prilosec both in the morning and then later again in the evening. He has not used any other medications for this symptom. He does confirm that it is acid reflux more than heartburn that is the problem. He suggests a symptom frequency of at least once per week and an episode can last for hours at a time. He notes that both mornings and evenings are worse than the middle of the day. In addition to straightforward reflux he suggest that he is burping acid which makes it feel like he is ready to puke. Additionally to he states he is experiencing some new hoarseness for which she has no other explanation. He reports a diagnosis of walking pneumonia approximately a decade ago but denies frequent upper respiratory tract infections. Outside of his reflux issue Mr. Dumont is treated by Dr. Carias of gastroenterology for a variant of diverticulitis. He states that he lives life around the toilet. By this he means that he experiences frequent diarrhea but states both things have been better since following with Dr. Carias and being started on Cymbalta and dicyclomine. Patient completed both colonoscopy and EGD with Dr. Kaz Reyes in 2022. He shares that he does have a history of polyps. He is unaware of any personal history of Garcia's esophagus. Patient has family history of esophageal cancer with his father. Patient describes trying to make lifestyle modifications to assist with his disease process and declares that he eats no later than 6 PM each night and then retires to bed between 8 PM and 9 PM. 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 While sleeping he reports that he is kind of propped on his pillows. Outside of these considerations he has tried to limit his caffeine and reports just 1 cup of coffee and occasional Mountain Dew daily. He also states that he is very careful with consumption of any spicy foods. Exam Const General: cooperative and comfortable Resp Effort & Inspection: normal respiratory effort GI Inspection: non-distended Assessment and Plan Assessment and Plan (1) GERD (gastroesophageal reflux disease): Status: Acute Comment: Patient is 63-year-old male with gastroesophageal reflux disease that is overall managed with use of PPI medications, however, patient has noted increasing symptom frequency and a concurrent need to increase this medication for control of his symptoms. He states it is ultimately his wish to no longer require these medications but also to manage his risk for esophageal cancer?of disease from [facility] his father ultimately passed. His previously diagnosed with a hiatal hernia on endoscopy and this is seen as well on CAT scan imaging of his abdomen and pelvis. I do not see that he had any formal biopsies of the gastroesophageal junction and no pH study was undertaken at that time. Therefore, it is my recommendation to repeat patient's EGD with biopsy and begin a pH study at that time. After a discussion of the pathophysiology and possible fundoplication, patient reports that he is interested in proceeding with surgical preoperative evaluation and we will thus plan to refer for for both esophagram and esophageal manometry. I briefly discussed the options for surgical repair to include full versus partial wrapping and suggested that today's literature largely favors the latter. I did invite patient to begin investigation for himself as well. Hand drawings were made to illustrate relevant anatomy and patient actually photographed these notes for later reference. Along with these descriptions I discussed that some patients have abnormal or inability to belch or vomit and while patient had some concerns he stated his interest in being done with the retrosternal discomfort seemed to outweigh these other concerns. Update 10/08/2024: Patient has completed the above battery of testing and EGD and pH probe showed some fundic polyps as well as some intestinal metaplasia of the gastric antrum. I discussed with him that the intestinal metaplasia is considered a precursor to gastric cancer but the transformation rate is low and recommended that we plan for surveillance endoscopy in 3-5 years irrespective of whether the surgery is performed. His Valencia pH probe assay showed an overall DeMeester score of 24 but his scores were rather disparate from day 1 today to where he had a DeMeester score calculated for day 1 of 32.5 but this went down to 13.8 on day 2. Without necessarily soliciting explanation Mr. Dumont explains that he remembers consciously decreasing his rate of pushing the button during the test as he was concerned he was in someway over responding. He then went on to complete a barium swallow which confirmed the presence of a small sliding hiatal hernia with reflux and finally manometry which was read as completely normal. Given the above I shared with Mr. Dumont that I find him to be a ideal candidate for laparoscopic hiatal hernia repair with fundoplication. I discussed the difference tween complete and partial fundoplication and I shared my recommendation would be to proceed with a partial fundoplication as recent data seems to suggest the integrity of the wrap says the same in the latter is simply associated with decreased rates of postoperative dysphagia. Hand drawings were again made to facilitate this discussion. I briefly in troduced the concept of the Linx device and shared that the procedure can still be dependent on his personal anatomy but believe that he should recognize a significant benefit from the procedure. Postoperative expectations were outlined to include approximately 1 week with a liquid diet and 5 weeks with limited activity in terms of activity that would expose him to the risk of rapid herniation. Patient and his confirmed understanding and stated they wish to proceed as described. An operative date will be selected. Plan: Laparoscopic hiatal hernia repair with toupet fundoplication. Postoperatively patient to be admitted to the hospital for monitoring and confirmation of diet tolerance (2) Hiatal hernia: Status: Acute Comment: Patient with ongoing consideration for laparoscopic hiatal hernia repair with fundoplication. At the outset patient appears to be an ideal candidate for this procedure based on his present habitus, experience with gastroesophageal reflux disease (in response to medical treatment), his interest in being free of PPI medications, and his family history. Plan: As above, patient has passed the above battery of testing appears an ideal candidate for laparoscopic hiatal hernia repair fundoplication I have examined the patient and the H&P has been reviewed. There are no clinical changes since date of exam. Procedure and postprocedure expectations (including overnight observational stay) were reviewed. Consents were confirmed. Proceed to operating room for laparoscopic hiatal hernia repair with fundoplication as discussed in detail above.
--- NOTE | 2024-11-22 12:20 | PCM.OPRPT ---
Operative Report (Standard) Operative Information Date of Procedure: 11/22/24 Pre-Operative Diagnosis: 1. Gastroesophageal reflux disease 2. Hiatal hernia Post-Operative Diagnosis: Same Surgery/Procedure Performed: 1. Laparoscopic hiatal hernia repair with toupet fundoplication 2. Esophagogastroscopy licensed physical therapy assistant: Yes Principal Web Developer: Noel Vega Tasks completed by orthopaedic physician assistant: Opening & closing, Retracting and Other (Laparoscopic camera operation) Type of Anesthesia: General/Supplemental RN Documented Start/Stop Times: Operation Date: 11/22/24 07:30 Case Time Into Pre-Op 11/22/24 05:54 Out of Pre-Op 11/22/24 07:24 Anesthesia Start 11/22/24 07:29 Into Room 11/22/24 07:29 Procedure Start 11/22/24 08:14 Procedure End 11/22/24 12:29 Anesthesia End 11/22/24 12:38 Out of Room 11/22/24 12:38 Into Recovery 11/22/24 12:41 Into Phase II Recovery 11/22/24 14:20 Out of Recovery 11/22/24 14:20 Out of Phase II 11/22/24 16:50 Procedure Start Time: 08:14 Procedure Stop Time: 12:29 Select all DRAINS/GRAFTS/IMPLANTS that apply: None Estimated Blood Loss: 15 Specimen collected: No Description of surgery: After appropriate identification in the preoperative holding, patient was brought to the operating room. There he was positioned supine on the operating room table. A underwent induction with general endotracheal anesthetic. A was positioned in a lithotomy position using yellowfin leg holders and a beanbag. Care was taken to avoid pressure points. A Ocampo catheter was then placed with sterile technique. Patient's abdomen was prepped and draped in usual sterile fashion and a formal timeout was conducted to confirm the patient and procedure. Procedure was begun with a Optiview entry in the left upper quadrant using a 5 mm port following Veress insufflation at Galeana's point. With this technique, pneumoperitoneum was established at 15 mmHg and subsequent laparoscopic investigation revealed no inadvertent injury to the viscera below. A second trocar (12 mm) was placed under laparoscopic visualization in the left periumbilical position after instillation of local anesthetic. A third trocar (5 mm) was placed, again under laparoscopic visualization, in the left upper quadrant along the anterior axillary line subcostally after instillation of local anesthetic. A fourth trocar (5 mm) was placed in the right upper quadrant under laparoscopic visualization after instillation of local. Lastly a Sis liver retractor was placed in the epigastrium also under laparoscopic visualization. This retractor was manipulated to elevate the left lobe of the liver and provide visualization to the diaphragmatic hiatus. Gentle traction was applied to the herniated stomach and this was easily reduced along with a hernia sac and some adjacent fatty tissue. Dissection of the hernia sac was begun on the side of the right janak using a laparoscopic LigaSure device by first opening the pars flaccida and carried clockwise around the hiatus. We encountered dense scar tissue along the left janak and therefore elected to perform a bottom up approach by incising the gastrosplenic ligament carefully dividing the short gastric vessels all the way up to the left janak using the LigaSure device. Both crura were clearly established and then I performed some limited mediastinal dissection to provide greater esophageal excursion taking care to identify the anterior and posterior vagi as well as the parietal pleura. Once we had circumferential dissection, a retroesophageal window was made with blunt dissection and 1/2 inch Ashby drain was placed about this opening to provide further cephalad traction on the stomach. With this traction we identified a few remaining hernia sac adhesions which were taken down with the use of the laparoscopic LigaSure. Next I performed cruralplasty with interrupted felt pledgeted 0 Ethibond suture that was placed approximately at 1 cm intervals for a total of 3 stitches. With this approximation, there was still an approximately a 1 cm gap between the posterior crural closure and the posterior esophagus. After this cruralplasty was completed, a partial, posterior (toupet type) fundal wrap was performed. To ensure the wrap was not overly tight, I requested anesthesia place a 51 Afghan bougie under direct laparoscopic visualization through the GE junction. The fundus of the stomach was secured to the crural elements posteriorly with an 0 Ethibond suture. Then the wrap was completed using interrupted Ethibond sutures tacking the fundus of the stomach to the muscular/adventitial layer of the esophagus in an interrupted fashion at the 10 and 2 positions on the esophagus. Approximately 3 interrupted sutures were used on either side of a gap in the middle which side to preserve the integrity of the anterior vagus nerve. The bougie was then removed by anesthesia without difficulty. Lastly, a endoscopic exam was performed of this wrap and we confirmed that the wrap allowed easy passage of the endoscope as well as excluded evidence for a leak by submerging the GE junction under water using the suction glassware engraver device. The stomach was evacuated of air and the scope was withdrawn. Returning to the abdomen, the Sis retractor was removed from position under laparoscopic visualization and pneumoperitoneum was evacuated. The 12 mm ports were closed under laparoscopic direction using a Abraham Woodward suture passer and #1 PDS in a [id number] technique. A total of 30 mL of half percent bupivacaine were infiltrated locally about these port sites both prior to insertion and at this point in closure. 4-0 Monocryl was used to close these incisions at the skin in a subcuticular fashion. Steri-Strips and OpSite dressings were applied and the case was formally concluded. The patient's Ocampo catheter were removed and the patient was allowed to emerge from anesthesia. They were then delivered to PACU for ongoing recovery. Surgical Findings: ? Medium sized hiatal hernia containing fat adjacent the hiatus Complications Complications: No Admit VTE Documentation VTE Mechan Device Prophylaxis: SCD's
--- NOTE | 2024-11-22 12:45 | PCM.POST.ANE ---
Anesthesia: Postop Eval I Current Vital Signs Temperature: 98.6 F Pulse Rate: 110 Blood Pressure: 149/90 Respiratory Rate: 20 Pulse Ox: 96 Oxygen Delivery Method: Room Air Assessment Airway patent: Yes Spontaneous unlabored respirations: Yes Mental status: Awake and Calm nausea: No Vomiting: No Anesthesia Complication: No Fluid Hydration Crystalloid volume administer (ml): 2,500 Total IV fluid infused: 2,500 Progress Note Anesthesia document: Postop Eval 1 completed: Yes
--- NOTE | 2024-11-22 15:40 | POSTOPAN2_ITS ---
Anesthesia Postop Eval I Sum Postop Eval Completion status Anesthesia document: Postop Eval 1 completed: Yes Anesthesia Postop Eval I Summary Anesthesia Postop Eval I Summary: Anesthesia Postop Eval I: Assessment Summary Airway patent Yes 11/22/24 12:46 DIRECTOR [email or web address] Spontaneous unlabored Yes 11/22/24 12:46 DIRECTOR [email or web address] respirations Mental status Awake,Calm 11/22/24 12:46 DIRECTOR [email or web address] nausea No 11/22/24 12:46 DIRECTOR [email or web address] Vomiting No 11/22/24 12:46 DIRECTOR [email or web address] Anesthesia Postop Eval I: Fluid Summary Crystalloid volume administer 2,500 11/22/24 12:46 DIRECTOR [email or web address] (ml) Colloids volume administered ( ml) Blood Product volume administered (ml) Total IV fluid infused 2,500 11/22/24 12:46 DIRECTOR [email or web address] Anesthesia Postop Eval I: Summary Notes Anesthesia Complication No 11/22/24 12:46 DIRECTOR [email or web address] Anesthesia Complication Comment: Post-operative progress note Anesthesia: Postop Eval II Evaluation Mental status: Awake and Calm Pain Level: 3 nausea: No Vomiting: No Progress Note Post-operative progress note: Patient felt like he needed to urinate however was having a difficult time with urination. Bladder scan demonstrated slightly over 200 mL of urine. He did have a catheter during the procedure. He will try to urinate and if not able we will consider a straight cath. Complications Anesthesia Complication: No
[2024-11-22] MEDS: Scopolamine 1mg/72hr Patch 1 PATCH TD (16:38)
[2024-11-22] MEDS: 0.9% Normal Saline (1000mL) 1,000 ML 50 ML IV (16:38)
[2024-11-22] MEDS: Acetaminophen 650 MG/20 ML UDC PO (20:34)
[2024-11-23 00:40] VITALS: BP 141/80; PULSE 103; RESP 16; TEMP 37.3; O2SAT 96; BMI 24.3
[2024-11-23 05:08] VITALS: BP 136/89; PULSE 97; RESP 16; TEMP 36.9; O2SAT 95
[2024-11-23 05:09] VITALS: BMI 24.3
--- NOTE | 2024-11-23 07:15 | PCM.PN.SRG ---
Subjective Subjective Patient evaluated resting comfortably in bed. He notes feeling improved since yesterday. He denies any further nausea or shoulder pain. He has been urinating well. He is tolerating clear liquids. Objective Data Objective Data Vital Signs: Vital Signs Temp Pulse Resp BP Pulse Ox O2 Del Method 98.4 F 97 16 136/89 H 95 Room Air 11/23/24 05:08 11/23/24 05:08 11/23/24 05:08 11/23/24 05:08 11/23/24 05:08 11/23/24 05:08 Oxygen Delivery Method Room Air Weight: 169 lb 12.095 oz Body Mass Index (BMI) 24.3 Intake & Output: Intake and Output for Last 24 Hours 11/21/24 11/22/24 11/23/24 23:59 23:59 23:59 Intake Total 400 / 400 Output Total 65 / 65 Balance -65 / -65 400 / 400 Lab / Micro Data 11/17/24 07:17 Physical Exam GI GI Narrative: Abdomen- incisions c/i. There are two op-sites with dried blood noted. No active oozing or bright red blood. No erythema or infection noted. Assessment & Plan Assessment/Plan (1) Hiatal hernia: PLAN: I am following this patient in conjunction with Dr. Lynch. He has independently evaluated this patient. Increase diet to full liquids. Will be discharged to home on full liquids Probable discharge later today Charges/Coding Visit Charges Inpatient E&M: 51703 Subs Hosp L1 (post-op; no charge)
[2024-11-23 08:01] VITALS: BP 135/87; PULSE 93; RESP 16; TEMP 36.8; O2SAT 95
[2024-11-23] MEDS: 0.9% Normal Saline (1000mL) 1,000 ML 50 ML IV (08:51)
[2024-11-23 14:41] VITALS: BP 146/82; PULSE 93; RESP 16; TEMP 36.8; O2SAT 98
== END 2024-11-23 16:48 | disposition home or self-care (01) ==
LOC: SDC 16:15 → MS3 16:15
PROVIDERS: Anesthesiology; Admitting Provider Surgery; PCP Family Medicine; Referring Provider Surgery; Visit Provider Surgery
PROC: (CPT 43325; principal; 2024-11-22 07:10)
DX: K44.9 Diaphragmatic hernia without obstruction or gangrene (principal); Z87.891 Personal history of nicotine dependence; K57.92 Diverticulitis of intestine, part unspecified, without perforation or abscess without bleeding; K21.9 Gastro-esophageal reflux disease without esophagitis; Z79.899 Other long term (current) drug therapy
CPT/HCPCS: 43281; 00790; 36415; 85027; 93005; 96374; 96376; 99221; G0378; J2405

== ENCOUNTER → 2025-01-20 | Outpatient (CLI) | payer OTHER, SELFPAY ==
--- NOTE | 2025-01-20 13:41 | CT_ITS ---
PROCEDURE: ABDOMEN/PELVIS WITH CONTRAST 01/20/2025 REASON FOR EXAM: ABDOMINAL PAIN TECHNIQUE: Procedure Code: [id number] Modality: CT Procedure: ABDOMEN/PELVIS WITH CONTRAST Coronal and Sagittal reconstruction series were provided. CONTRAST: Isovue 370 VOLUME: 100 mL One or more dose reduction techniques were used (e.g., Automated exposure control, adjustment of the mA and/or kV according to patient size, use of iterative reconstruction technique. RADIATION DOSE SUMMARY: CTDlvol: 29 mGy DLP: 713 mGycm COMPARISON: 04/29/2023 FINDINGS: Normal appearance of the liver. Surgical absence of the gallbladder. Normal appearance of the spleen. No pancreatic mass or adjacent inflammation. No renal mass or calculus. Normal adrenal glands. GI contrast was administered and there is no bowel obstruction. No free-fluid or free air. Minimal diverticulosis. Normal abdominal aorta without adenopathy. No lumbar compression deformity or destructive osseous change. The lung bases are clear. CT/Abdomen/Pelvis WITH Contrast IMPRESSION: No acute abnormality Reading [facility]
== END | disposition home or self-care (01) ==
LOC: CT 13:40
PROVIDERS: PCP Family Medicine; Referring Provider Nurse Practitioner Acute Care; Visit Provider Nurse Practitioner Acute Care
DX: R10.9 Unspecified abdominal pain (principal); R14.0 Abdominal distension (gaseous); K59.1 Functional diarrhea
CPT/HCPCS: 74177; Q9967

== ENCOUNTER → 2025-02-01 | Outpatient (CLI) | payer OTHER, SELFPAY | END | disposition home or self-care (01) | LOC: LABSPEC 08:24 | PROVIDERS: PCP Family Medicine; Referring Provider Nurse Practitioner Acute Care; Visit Provider Nurse Practitioner Acute Care | DX: K58.9 Irritable bowel syndrome, unspecified (principal); R10.9 Unspecified abdominal pain; R14.0 Abdominal distension (gaseous); K59.1 Functional diarrhea | CPT/HCPCS: 83630; 87177; 87209; 87329 ==

== ENCOUNTER → 2025-02-23 | Outpatient (CLI) | payer OTHER, SELFPAY ==
--- NOTE | 2025-02-23 06:36 | ECHOD_ITS ---
Reason For Study Reason For Study: ATRIAL FIBRILLATION/FLUTTER Procedure This was a 2D Doppler, Color Flow transthoracic echocardiogram. Exam performed in department. Left Ventricle Normal LV size. Posterior hypokinesis. Mid to distal anterior and anteroseptal hypokinesis. Estimated LVEF 45%. Stage I diastolic dysfunction. Right Ventricle Normal right ventricle. Atria The left and right atria are normal. Mitral Valve Trivial mitral valve insufficiency. Tricuspid Valve Trivial tricuspid valve insufficiency. Unable to estimate RV systolic pressure due to insufficient tricuspid regurgitant envelope. Aortic Valve Trisinus/trileaflet aortic valve. Pulmonic Valve The pulmonic valve is not well visualized. Mild (1+) pulmonic valve insufficiency. Great Vessels Normal sized aortic root. Pericardium/Pleural No pericardial effusion. MMode/2D Measurements & Calculations LVIDd: 4.2 cm IVSd: 0.81 cm Ao root diam: 3.2 cm LVIDs: 2.8 cm LVPWd: 0.88 cm RVDd: 3.3 cm FS: 33.2 % asc Aorta Diam: 3.3 cm LAV(MOD-bp): 41.7 ml LVAd ap4: 29.3 cm2 LAV(MOD-bp) Indexed: 21.9 ml/m2 LVLd ap4: 7.8 cm LAV(MOD-sp2): 41.4 ml EDV(MOD-sp4): 90.2 ml LAV(MOD-sp4): 39.8 ml EDV(sp4-el): 92.7 ml LVAs ap4: 16.5 cm2 LVLs ap4: 6.8 cm ESV(MOD-sp4): 35.9 ml ESV(sp4-el): 34.2 ml EF(MOD-sp4): 60.2 % EF(sp4-el): 63.1 % SV(MOD-sp4): 54.4 ml SV(sp4-el): 58.5 ml Ao sinus diam: 3.5 cm SI(MOD-sp4): 28.6 ml/m2 Ao ST Junction: 2.6 cm LA A4 area: 15.4 cm2 LA dimension(2D): 4.2 cm TAPSE: 2.1 cm RA A4 area: 13.9 cm2 Time Measurements MV dec time: 0.14 sec Doppler Measurements & Calculations MV E max jaron: 56.7 cm/sec Lat Peak E' Jaron: 9.8 cm/sec Med Peak E' Jaron: 8.2 cm/sec MV A max jaron: 84.0 cm/sec E/E' lat: 5.8 E/E' med: 6.9 MV E/A: 0.67 MV V2 max: 89.5 cm/sec MV P1/2t max jaron: 69.6 cm/sec Ao V2 max: 97.4 cm/sec MV max P.2 mmHg MV P1/2t: 73.8 msec Ao max P.8 mmHg MV V2 mean: 44.2 cm/sec MV dec slope: 276.1 cm/sec2 Ao V2 mean: 69.0 cm/sec MV mean P.92 mmHg Ao mean P.2 mmHg MV V2 VTI: 18.0 cm MVA(P1/2t): 3.0 cm2 Ao V2 VTI: 20.3 cm AV (velocity ratio): 0.85 LV V1 max: 77.0 cm/sec PA V2 max: 112.8 cm/sec PI end-d jaron: 85.3 cm/sec LV V1 max P.4 mmHg PI dec slope: 112.0 cm/sec2 LV V1 mean P.2 mmHg LV V1 mean: 52.0 cm/sec LV V1 VTI: 17.2 cm TR max jaron: 262.3 cm/sec TR max P.5 mmHg ECHO/Echo Complete Interpretation Summary Posterior hypokinesis. Mid to distal anterior and anteroseptal hypokinesis. Est imated LVEF 45%. Stage I diastolic dysfunction. Mild (1+) pulmonic valve insufficiency. Ordering Physician: Crescencio Tubbs Referring Physician: Félix Dorado Performed By: [place], RDLEONEL, RVT
--- NOTE | 2025-02-24 12:18 | STRESSREP ---
Stress Test Report Date: 02/23/2025 Procedure: Exercise tolerance test/imaging study Indications: Chest pain Consent: Per the patient Procedure: The patient exercised on a Enrico protocol for 9 minutes achieving a peak heart rate of 142 bpm (89% predicted maximal heart rate) with a peak blood pressure 174/80 mmHg and a peak MET capacity of 10.1 METs. The baseline ECG demonstrated sinus rhythm. The peak exercise ECG did not show any ischemic changes however there were borderline ST depressions in anterior leads in recovery. There were no cardiac dysrhythmias pretest, during exercise, or recovery. The functional capacity was considered excellent for age. There was no complaint of chest discomfort during exercise or recovery. The examination was discontinued secondary to target heart rate being achieved. The patient was injected with 11.6 mCi of technetium 99m Cardiolite and subsequently rest SPECT Cardiolite nuclear imaging was obtained in the horizontal long, vertical long, and short axis views. Post-exercise, the patient was injected with 34.5 mCi of technetium 99m Cardiolite and subsequently stress SPECT Cardiolite nuclear imaging was obtained in the horizontal long, vertical long, and short axis views. A gated Cardiolite study at peak stress was obtained. Rest and stress SPECT Cardiolite nuclear imaging status post realignment, normalization, and attenuation correction, demonstrates the appearance of relative uniform tracer uptake and myocardial perfusion appearing within normal limits. There is end systolic thickening and brightening. The gated Cardiolite study demonstrates myocardial thickening and inward wall motion. The reported LVEF is 61%. Impression: 1. Technically adequate (percent predicted maximal heart rate greater than 85%) exercise tolerance test. No chest pain reported 2. ST depressions in anterior leads in recovery that are borderline positive for ischemia 3. There were no cardiac dysrhythmias pretest, during exercise, or recovery 4. Rest and stress SPECT Cardiolite nuclear imaging demonstrate relative uniform tracer uptake and myocardial perfusion appearing within normal limits. 5. The gated Cardiolite study reports an LVEF of 61%. This note was generated with [employer] software. It may contain incorrect words, spelling, and punctuation that were not noted in checking the note before signing.
== END | disposition home or self-care (01) ==
PROVIDERS: PCP Family Medicine; Referring Provider Internal Medicine Cardiovascular Disease; Visit Provider Internal Medicine Cardiovascular Disease
DX: R06.09 Other forms of dyspnea (principal); R07.89 Other chest pain; I10 Essential (primary) hypertension
CPT/HCPCS: 78452; 93017; 93306; A9500; A4216

== ENCOUNTER → 2025-03-21 | Outpatient (CLI) | payer OTHER, SELFPAY ==
--- NOTE | 2025-03-21 12:45 | CT_ITS ---
PROCEDURE: LIMITED CHEST CT CARDIAC ONLY 03/21/2025 REASON FOR EXAM: ABNORMAL RESULT OF CARDIOVASCULAR FUNCTION STUDY, UNSPECIFIED Hypertension. Former smoker. TECHNIQUE: Procedure Code: [id number] Modality: CT Procedure: LIMITED CHEST CT CARDIAC ONLY Coronal and Sagittal reconstruction series were provided. CONTRAST: Isovue 370 VOLUME: 77 mL One or more dose reduction techniques were used (e.g., Automated exposure control, adjustment of the mA and/or kV according to patient size, use of iterative reconstruction technique). RADIATION DOSE SUMMARY: CTDlvol: 32 mGy DLP: 1294 mGycm COMPARISON: None FINDINGS: The heart is nonenlarged. No significant coronary artery calcification is seen. Small benign-appearing mediastinal lymph nodes. CT/Limited Chest CT Cardiac Only IMPRESSION: No significant coronary artery calcification seen. Reading Location: [place] [id number]
[2025-03-21 12:48] VITALS: BP 132/92; PULSE 72; RESP 18; O2SAT 100; BMI 22.9
[2025-03-21 13:14] VITALS: BP 132/92; PULSE 71
[2025-03-21] MEDS: Nitroglycerin SL (ED/IMG/CATH) 0.4 MG TABLET SL (13:14)
[2025-03-21 13:24] VITALS: BP 125/87; PULSE 71; RESP 16; O2SAT 97
--- NOTE | 2025-03-25 16:12 | CCTA_ITS ---
CCTA w/Cont Coronary Arteries Date of Study:: 03/21/25 Abnormal stress test Coronary Calcium Scoring: High-resolution Computed Tomographic imaging of the chest was performed on [03/21/2025], with particular attention paid to the coronary arteries. Intravenous contrast agent was administered per protocol and images reconstructed and displayed. LEFT MAIN CORONARY ARTERY: Arises from the left main coronary cusp and is noted to bifurcate to left anterior descending and left circumflex artery. No high- grade stenosis noted in this vessel [] LEFT ANTERIOR DESCENDING CORONARY ARTERY: This vessel continues with mild proximal calcification. The vessel continues towards the apex of the ventricle. No significant stenosis is noted. Mild focal calcification is present. [] LEFT CIRCUMFLEX CORONARY ARTERY: Nondominant vessel with no significant atherosclerotic plaquing noted and no significant obvious stenosis present. [] RIGHT CORONARY ARTERY: Dominant right coronary artery with no significant atherosclerotic plaquing or stenosis noted. [] THORACIC AORTA: [] PULMONARY ARTERY: [] LEFT ATRIUM/APPENDAGE: [] MITRAL VALVE: [] AORTIC VALVE: [] LEFT VENTRICLE: [] CORONARY CALCIUM SCORE: [] Calcium Scoring Interpretation: Different methods to categorize the overall amount of coronary plaque. Overall amount CAC SIS Visual of coronary plaque P1 Mild -100 <2 1-2 vessels with mild amount of plaque P2 Moderate 101-300 3-4 1-2 vessels with moderate amount, 3 vessels with mild amount of plaque P3 Severe 301-999 5-7 3 vessels with moderate amount, 1 vessel with severe amount of plaque P4 Extensive >1000 >8 2-3 vessels with severe amount of plaque Conclusion: CT angiogram demonstrating no significant atherosclerotic plaquing or stenosis present.
== END | disposition home or self-care (01) ==
LOC: CT 12:36
PROVIDERS: PCP Family Medicine; Referring Provider Student in an Organized Health Care Education/Training Program; Visit Provider Student in an Organized Health Care Education/Training Program
DX: R94.30 Abnormal result of cardiovascular function study, unspecified (principal); R07.9 Chest pain, unspecified
CPT/HCPCS: 75574; 76380; Q9967